=== PATIENT | male | born 1990 | race Caucasian/White ===

== ENCOUNTER 2020-10-30 23:59 | Emergency (ER) | payer MEDICAID ==
[~2020-10-30] VITALS: Ht 175.3 cm; Wt 75.0 kg
[2020-10-31] MEDS ORDERED: IPRATROPIUM BROMIDE (0.02%) 0.5MG/2.5ML NEB HHN STA (00:39)
[2020-10-31] MEDS ORDERED: ALBUTEROL (0.083%) 2.5MG/3ML NEB HHN STA (00:39)
[2020-10-31] MEDS ORDERED: METHYLPREDNISOLONE SOD SUCC 125 MG/2 ML VIAL IV STA (00:39)
[2020-10-31 05:20] VITALS: BP 125/70
== END 2020-10-31 05:20 | disposition home or self-care (01) ==
LOC: ER 23:59
DX: J45.901 Unspecified asthma with (acute) exacerbation (principal); R03.0 Elevated blood-pressure reading, without diagnosis of hypertension; F17.200 Nicotine dependence, unspecified, uncomplicated; F12.10 Cannabis abuse, uncomplicated
CPT/HCPCS: 71045; 93005; 94640; 96374; 99285; J2930; Z7610